=== PATIENT | female | born 1955 | race Caucasian/White ===

== ENCOUNTER → 2019-09-06 16:22 | Outpatient (CLI) | payer OTHER, SELFPAY ==
--- NOTE | 2019-09-06 16:32 | MRI_ITS ---
STUDY: MRI LUMBAR SPINE WITHOUT CONTRAST REASON FOR EXAM: Female, 64 years old. L hip and L leg pain, X 1 year, no known injury TECHNIQUE: Standardized fat and water weighted pulse sequences were obtained in the sagittal and axial planes. COMPARISON: None FINDINGS: T12-L1: Normal endplates. Normal disc height, hydration and morphology. Normal bilateral facet joints. Normal central canal and bilateral lateral recesses. Normal bilateral intervertebral neural foramina. Grade 1 L4-5 anterolisthesis. There is no substantial scoliosis. Normal conus medullaris that terminates at the L1-2 level. L1-2: Bulging annulus and central disc protrusion with bilateral facet hypertrophy. No compressive sequelae. L2-3: Normal endplates. Normal disc height, hydration and morphology. Normal bilateral facet joints. Normal central canal and bilateral lateral recesses. Normal bilateral intervertebral neural foramina. L3-4: Normal disc. Bilateral facet hypertrophy without compressive sequelae. L4-5: Bulging annulus and bilateral facet hypertrophy with mild central canal and bilateral foraminal stenoses. L5-S1: Normal disc. Bilateral facet hypertrophy without compressive sequelae. Normal visualized sacral ala. Normal visualized paraspinous soft tissue structures. MRI/Spine Lumbar (Routine) IMPRESSION: Multilevel degenerative disease as described. Grade 1 L4-5 anterolisthesis. No evidence of nerve root impingement. Electronically Signed: Destin Regan MD at 20:20 EST Tel , Service support ,
== END ==
PROVIDERS: Referring Provider Internal Medicine Rheumatology; Visit Provider Internal Medicine Rheumatology
DX: M54.16 Radiculopathy, lumbar region (principal)
CPT/HCPCS: 72148

== ENCOUNTER → 2019-09-26 13:03 | Outpatient (CLI) | payer OTHER, SELFPAY ==
--- NOTE | 2019-09-26 13:03 | RAD_ITS ---
STUDY: X-RAY - LUMBAR SPINE REASON FOR EXAM: Female, 64 years old. Low back pain. TECHNIQUE: 4 view(s) of the lumbar spine were obtained. COMPARISON: MRI lumbar spine 09/06/2019 FINDINGS: Degenerative anterolisthesis of L4 on L5 measures 8 mm in neutral position, 11 mm with flexion, and 6 mm with extension. This is secondary to marked bilateral facet degeneration. Marked facet degeneration is also present at L5-S1. Only mild disc degeneration. No acute fracture or osseous destruction. Alignment otherwise anatomic. Soft tissues unremarkable. RAD/L/S Spine Min 4 Views IMPRESSION: Degenerative anterolisthesis of L4 on L5 with mechanical instability at this level secondary to severe bilateral facet degeneration. Electronically Signed: Gino Goodwin, at 6:59 EST Tel , Service support ,
== END ==
PROVIDERS: Referring Provider Orthopaedic Surgery; Visit Provider Orthopaedic Surgery
DX: M54.5 Low back pain (principal)
CPT/HCPCS: 72110